=== PATIENT | female | born 1965 | race Caucasian/White ===

== ENCOUNTER 2019-04-26 17:55 | Emergency (ER) | payer OTHER, MEDICAID ==
[~2019-04-26] VITALS: Ht 175.3 cm; Wt 70.3 kg
[2019-04-26 18:00] VITALS: BP_SYST 130
[2019-04-26 19:46] LABS: BASOPHILS % (AUTO) 0.8 % (0.0-2.0); EOSINOPHILS % (AUTO) 0.1 % (0.0-4.0); HEMATOCRIT 31.4 % (36-48); HEMOGLOBIN 10.5 g/dL (12.0-16.0); LYMPHOCYTES # (AUTO) 1.5 K/uL (1.0-5.5); MEAN CORPUSCULAR HEMOGLOBIN 31 pg (27-31); MEAN CORPUSCULAR HGB CONC 33 % (32-36); MEAN CORPUSCULAR VOLUME 92 fL (79.0-98.0); MONOCYTES # (AUTO) 0.3 K/uL (0.0-1.0); MONOCYTES % (AUTO) 6.7 % (1.7-9.3); NEUTROPHILS # (AUTO) 2.6 K/uL (1.8-7.7); NEUTROPHILS % (AUTO) 59.4 % (40.0-70.0); PLATELET COUNT (AUTO) 204 K/uL (130-430); RED BLOOD CELL COUNT(AUTO) 3.42 MIL/uL (4.2-6.2); RED CELL DISTRIBUTION WIDTH 16.8 % (9.0-15.0); WHITE BLOOD COUNT (AUTO) 4.5 K/uL (4.8-10.8)
[2019-04-26 20:10] LABS: ANION GAP 10 (5-15); CALCIUM 9.4 mg/dL (8.4-11.0); CHLORIDE 101 mmol/L (98-107); CREATININE 1.67 mg/dL (0.55-1.30); GLUCOSE 100 mg/dL (70-99); SODIUM SERUM 133 mmol/L (136-145); UREA NITROGEN, BLOOD 21 mg/dL (8-21)
[2019-04-26 20:12] LABS: GFR AFRICAN AMERICAN 41 mL/min (>90)
[2019-04-26 20:14] LABS: ALANINE AMINOTRANSFERASE 12 U/L (12-78); ALBUMIN 3.6 g/dL (3.4-4.8); ASPARTATE AMINOTRANSFERASE 15 U/L (10-37); CHOLESTEROL 154 mg/dL (<200); HDL CHOLESTEROL 38 mg/dL (>55); LDL CHOLESTEROL 75 mg/dL (<100); TOTAL BILIRUBIN 0.3 mg/dL (0.0-1.0); TRIGLYCERIDES 152 mg/dL (30-150)
[2019-04-26 20:23] LABS: ALCOHOL, BLOOD < 3 mg/dL (<10)
--- NOTE | 2019-04-26 20:30 | NUR ---
Patient to ER [facility] to gown for evaluation. Side rails up.
--- NOTE | 2019-04-26 20:35 | NUR ---
Patient was BIB transporter from [facility] for medical clearance to [facility] Room 61B. Pt is hyperverbal and increased agitation. Pt is able to ambulate with steady gait. Pt is AAO x 3 with intermittent confusion. No other injuries/complaints per patient or noted.
[2019-04-26 20:57] LABS: ACETAMINOPHEN < 1 ug/mL (1-30)
--- NOTE | 2019-04-26 20:58 | NUR ---
Patient ambulated to restroom to provide urine. Pt tolerated well.
--- NOTE | 2019-04-26 21:18 | NUR ---
ER Dr. Mcrae at bedside examining patient.
[2019-04-26 21:41] LABS: BILIRUBIN,URINE NEGATIVE (NEGATIVE); BLOOD, URINE NEGATIVE (NEGATIVE); CLARITY/URINE CLEAR (CLEAR); GLUCOSE,URINE NEGATIVE (NEGATIVE); KETONES,URINE NEGATIVE (NEGATIVE); LEUKOCYTE ESTERASE ,URINE NEGATIVE (NEGATIVE); NITRITE, URINE NEGATIVE (NEGATIVE); PROTEIN URINE NEGATIVE (NEGATIVE); UROBILINOGEN,URINE 0.2 (0.2-1.0)
[2019-04-26 21:56] LABS: COLOR,URINE STRAW (YELLOW)
[2019-04-26 22:03] LABS: BARBITURATE, URINE NEGATIVE (NEG <=200); BENZODIAZEPINE, URINE NEGATIVE (NEG <=150); CANNABINOID, URINE NEGATIVE (NEG <=50); COCAINE, URINE NEGATIVE (NEG <=150); METHAMPHETAMINES SCREEN,URINE NEGATIVE (NEG <=500); OPIATE, URINE NEGATIVE (NEG <=100); PHENCYCLIDINE SCREEN,URINE NEGATIVE (NEG <=25); UR TRICYCLIC ANTIDEPRESSANTS NEGATIVE (NEG <=300); URINE AMPHETAMINE NEGATIVE (NEG <=500); URINE METHADONE NEGATIVE (NEG <=200); URINE OXYCODONE SCREEN NEGATIVE (NEG <=100); URINE PROPOXYPHENE SCREEN NEGATIVE (NEG <=300)
[2019-04-26 22:09] VITALS: BP_SYST 134
--- NOTE | 2019-04-26 22:09 | NUR ---
Patient to be transferred to [facility] Room 61B. Is being transferred due to higher level of care. Receiving facility has accepting physician and available space. ER physician has signed transfer form. Patient or responsible alliance party has agreed to transfer and signed form. Patient belongings inventoried and will be sent with patient. Copy of nursing notes, lab reports, EKG, Physicians Orders and X-rays to be sent with patient. Report called to Liliana at receiving facility. Receiving physician is Dr. Calderón. [facility] service has been called for transfer.
== END 2019-04-26 22:09 ==
LOC: SED 17:55
DX: F31.9 Bipolar disorder, unspecified (principal); I10 Essential (primary) hypertension; F17.210 Nicotine dependence, cigarettes, uncomplicated
CPT/HCPCS: 36415; 80053; 80061; 80307; 81003; 83036; 85025; 87081; 99285; G0480; G0481; G0482